=== PATIENT | female | born 1980 | race Caucasian/White ===

== ENCOUNTER → 2020-06-22 | Outpatient (CLI) | payer BC ==
--- NOTE | 2020-06-22 10:55 | US ---
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 GLAND SIZE: Right Lobe: 7.2 X 1.4 X 2.6 cm Overall Parenchyma: homogenous Left Lobe: 8.1 X 2.1 X 2.2 cm Overall Parenchyma: homogeneous Isthmus Thickness: 0.4 cm NODULES RIGHT: # of nodules measured on right: 0 LEFT: # of nodules measured on left: 0 ISTHMUS: # of nodules measured in the isthmus: 0 Bilateral neck scanned, no evidence of lymphadenopathy. IMPRESSION: Thyromegaly with no solid or cystic thyroid nodule 2017 ACR TI-RADS LEVEL: TR-RADS 1 - BENIGN: No FNA *Highest TI-RADS level nodule reported
== END | disposition home or self-care (01) ==
LOC: RADUSWWP 10:22
PROVIDERS: ATTEND Family Medicine
DX: E06.3 Autoimmune thyroiditis (principal); E01.0 Iodine-deficiency related diffuse (endemic) goiter
CPT/HCPCS: 76536

== ENCOUNTER → 2020-07-08 | Outpatient (CLI) | payer BC ==
--- NOTE | 2020-07-09 09:09 | MM ---
Reason for exam: screening (asymptomatic). History: Patient had first child at age 30. Family history of breast cancer in maternal grandmother at age 85. Took hormonal contraceptives beginning at age 17. Physical Findings: A clinical breast exam by your physician is recommended on an annual basis and results should be correlated with mammographic findings. MG 3D Screening Mammo W/Cad Bilateral CC, MLO, and XCCL view(s) were taken. The breast tissue is heterogeneously dense. This may lower the sensitivity of mammography. Nodular density upper central right breast. ASSESSMENT: Incomplete: need additional imaging evaluation, BI-RAD 0 RECOMMENDATION: Special view mammogram and ultrasound of the right breast. [facility] will attempt to contact patient to return for supplemental views and ultrasound.
== END | disposition home or self-care (01) ==
LOC: RADMAMWWP 10:53
PROVIDERS: ATTEND Family Medicine
DX: Z12.31 Encounter for screening mammogram for malignant neoplasm of breast (principal); Z80.3 Family history of malignant neoplasm of breast
CPT/HCPCS: 77063; 77067

== ENCOUNTER → 2020-07-15 | Outpatient (CLI) | payer BC ==
--- NOTE | 2020-07-15 11:29 | MM ---
Reason for exam: additional evaluation requested from abnormal screening. Last mammogram was performed less than 1 month ago. History: Patient had first child at age 30. Family history of breast cancer in maternal grandmother at age 85. Benign cyst aspiration of the left breast, 2009. Took hormonal contraceptives beginning at age 17. Physical Findings: Nurse did not find any significant physical abnormalities on exam. MG 3D Work Up W/Cad RT Spot compression CC, spot compression MLO, LM, and CCRL view(s) were taken of the right breast. Prior study comparison: July 08, 2020, bilateral MG 3d screening mammo w/cad. Right 7mm nodule 12 o'clock, 4.5cm from nipple. These results were verbally communicated with the patient and result sheet given to the patient on 07/15/20. ASSESSMENT: Incomplete: need additional imaging evaluation, BI-RAD 0 RECOMMENDATION: Ultrasound of the right breast.
--- NOTE | 2020-07-15 11:31 | USB ---
Reason for exam: additional evaluation requested from abnormal screening. History: Patient had first child at age 30. Family history of breast cancer in maternal grandmother at age 85. Benign cyst aspiration of the left breast, 2009. Took hormonal contraceptives beginning at age 17. US Breast Workup Limited RT Right limited breast ultrasound including focal area of concern, retroareolar and axilla demonstrates a 1.2 x 1.0 x 1.2cm lobular, cystic cluster at 12 o'clock. Probably benign, 6 month diagnostic mammogram and ultrasound recommended. These results were verbally communicated with the patient and result sheet given to the patient on 07/15/20. ASSESSMENT: Probably benign, BI-RAD 3 RECOMMENDATION: Follow-up diagnostic mammogram and ultrasound of the right breast in 6 months.
== END | disposition home or self-care (01) ==
LOC: RADMAMWWP 08:18
PROVIDERS: ATTEND Family Medicine
DX: N63.10 Unspecified lump in the right breast, unspecified quadrant (principal); N60.01 Solitary cyst of right breast; Z80.3 Family history of malignant neoplasm of breast
CPT/HCPCS: 77061; 77065

== ENCOUNTER → 2021-03-08 | Outpatient (CLI) | payer BC ==
--- NOTE | 2021-03-08 13:19 | XR ---
EXAMINATION TYPE: XR chest 2V DATE OF EXAM: 03/08/2021 COMPARISON: 04/09/2013 HISTORY: 40-year-old female with chest pain. [id number], [id number] TECHNIQUE: Frontal and lateral views FINDINGS: The cardiomediastinal silhouette, aorta, and pulmonary vasculature are within normal limits. Lungs an d pleural spaces are clear. IMPRESSION: No acute cardiopulmonary process.
[2021-03-08 14:58] LABS: Basophils # (A) 0.06 X 10*3/uL (0.00-0.10); Eosinophils # (A) 0.28 X 10*3/uL (0.04-0.35); Eosinophils % (A) 4.6 %; HCT 40.3 % (37.2-46.3); HGB 12.6 g/dL (12.0-15.0); Lymphocytes # (A) 2.43 X 10*3/uL (0.90-5.00); Lymphocytes % (A) 40.1 %; MCH 29.7 pg (27.0-32.0); MCHC 31.3 g/dL (32.0-37.0); Mean Platelet Volume 9.3 fL (9.5-12.2); Monocytes # (A) 0.48 X 10*3/uL (0.20-1.00); Monocytes % (A) 7.9 %; Neutrophils # (A) 2.79 X 10*3/uL (1.80-7.70); Neutrophils % (A) 46.1 %; Platelet Count 324 X 10*3/uL (140-440); RBC 4.24 X 10*6/uL (4.10-5.20); RDW 12.1 % (11.5-14.5); WBC 6.06 X 10*3/uL (4.50-10.00)
[2021-03-08 15:23] LABS: ALT 11 U/L (8-44); AST 14 U/L (13-35); African American GFR (CKD) 99.3 (60.0-200.0); Albumin 4.4 g/dL (3.8-4.9); Alkaline Phosphatase 52 U/L (41-126); BUN/Creat Ratio 13.25 Ratio (12.00-20.00); Blood Urea Nitrogen 11.2 mg/dL (9.0-27.0); Calcium 9.2 mg/dL (8.7-10.3); Carbon Dioxide 25.7 mmol/L (20.0-27.5); Chloride 102 mmol/L (96-109); Chol/HDL Ratio 3.77 Ratio; Globulin 2.8 g/dL (1.6-3.3); Glucose 89 mg/dL (70-110); Non-African American GFR(CKD) 85.7 (60.0-200.0); Potassium 3.8 mmol/L (3.5-5.5); Sodium 138 mmol/L (135-145); Total Bilirubin <0.20 mg/dL (0.30-1.20); Total Protein 7.2 g/dL (6.2-8.2)
== END | disposition home or self-care (01) ==
LOC: LABWHC1 08:59
PROVIDERS: ATTEND Family Medicine
DX: E06.3 Autoimmune thyroiditis (principal); R07.1 Chest pain on breathing; R07.89 Other chest pain; F41.8 Other specified anxiety disorders; E55.9 Vitamin D deficiency, unspecified
CPT/HCPCS: 36415; 71046; 80053; 80061; 82306; 84439; 84443; 84484; 85025; 85379

== ENCOUNTER → 2022-08-07 | Outpatient (CLI) | payer BC ==
[2022-08-07 16:00] LABS: Appearance,Urine Cloudy (Clear); Bacteria,Urine Rare /hpf; Bilirubin,Urine Negative (Negative); Blood,Urine Moderate (Negative); Color,Urine Yellow; Glucose,Urine (UA) Negative (Negative); Ketones,Urine Negative (Negative); Leukocyte Esterase,Urine Trace (Negative); Mucus,Urine Rare /hpf; Nitrite,Urine Negative (Negative); PH, Urine 5.5 (5.0-8.0); Protein,Urine Negative (Negative); RBC,Urine 5 /hpf (0-5); Specific Gravity,Urine 1.017 (1.001-1.035); Squamous Epithelial Cell,Urine 5 /hpf (0-4); Urobilinogen,Urine <2.0 mg/dL (<2.0); WBC,Urine 2 /hpf (0-5)
[2022-08-07 16:02] LABS: ALT 16 U/L (4-34); AST 20 U/L (14-36); African American GFR (CKD) >90 (>60 ml/min/1.73 sqM); Albumin 3.9 g/dL (3.5-5.0); Albumin/Globulin Ratio 1.3; Alkaline Phosphatase 64 U/L (38-126); Anion Gap 5 mmol/L; Blood Urea Nitrogen 15 mg/dL (7-17); C Reactive Protein <0.5 mg/dL (<1.0); Calcium 8.9 mg/dL (8.4-10.2); Carbon Dioxide 28 mmol/L (22-30); Chloride 103 mmol/L (98-107); Creatine Kinase 62 U/L (30-135); Globulin 2.9 g/dL; Glucose 87 mg/dL (74-99); Non-African American GFR(CKD) 87 (>60 ml/min/1.73 sqM); Phosphorus 3.1 mg/dL (2.5-4.5); Potassium 4.1 mmol/L (3.5-5.1); Sodium 136 mmol/L (137-145); T4, Free (Free Thyroxine) 1.02 ng/dL (0.78-2.19); Total Bilirubin 0.4 mg/dL (0.2-1.3); Total Protein 6.8 g/dL (6.3-8.2); Uric Acid 3.8 mg/dL (3.7-7.4)
[2022-08-07 20:11] LABS: Basophils # (A) 0.09 X 10*3/uL (0.00-0.10); Basophils % (A) 0.8 %; Eosinophils # (A) 0.21 X 10*3/uL (0.04-0.35); Eosinophils % (A) 1.9 %; HCT 40.7 % (37.2-46.3); Lymphocytes # (A) 3.77 X 10*3/uL (0.90-5.00); Lymphocytes % (A) 34.9 %; MCH 30.2 pg (27.0-32.0); MCHC 31.9 d/dL (32.0-37.0); MCV 94.4 FL (80.0-97.0); Monocytes # (A) 0.62 X 10*3/uL (0.20-1.00); Monocytes % (A) 5.7 %; NRBC Per 100 WBC 0 X 10*3/uL (0.00-0.01); Neutrophils # (A) 6.03 X 10*3/uL (1.80-7.70); Platelet Count 347 X 10*3/uL (140-440); RBC 4.31 X 10*6/uL (4.10-5.20); RDW 12.9 % (11.5-14.5)
[2022-08-07 21:05] LABS: Erythrocyte Sedimentation Rate 5 mm/Hr (0-20)
[2022-08-08 01:22] LABS: Cyclic Citrull Pep IgG Unit <1.5 U/mL (<=3.9); Cyclic Citrullinated Pep IgG Negative
[2022-08-08 08:41] LABS: Prealbumin 24.6 mg/dL (18.0-42.0)
[2022-08-08 10:09] LABS: Rheumatoid Factor, Qnt <15 IU/mL (0-15); Testosterone <10.00 ng/mL (9.01-47.94)
[2022-08-08 13:41] LABS: HLA B27 NEGATIVE
[2022-08-08 16:25] LABS: Estrogens Total 645 pg/mL
[2022-08-08 20:02] LABS: Vitamin D, 1, 25-Dihydroxy 61 pg/mL (20 - 79)
== END | disposition home or self-care (01) ==
LOC: LABWHC1 13:32
PROVIDERS: ATTEND Orthopaedic Surgery
DX: M54.12 Radiculopathy, cervical region (principal)
CPT/HCPCS: 36415; 80053; 81001; 82009; 82306; 82550; 82652; 82672; 83970; 84100; 84134; 84403; 84439; 84443; 84550; 85025; 85652; 86038; 86140; 86200; 86431; 86812

== ENCOUNTER → 2022-08-09 | Outpatient (CLI) | payer BC ==
--- NOTE | 2022-08-09 10:32 | USB ---
Reason for Exam: Clinical finding. Patient History: Menarche at age 10. First Full-Term at age 30. Late child-bearing (after 30). Premenopausal. Hormonal Contraceptives, from age 17 until age 24. 2010, Benign Cyst Aspiration on the left side. Maternal grandmother had breast cancer, age 85. Risk Values: Rosamaria 5 year model risk: 1.1%. NCI Lifetime model risk: 14.4%. Technique: Method: Whole Breast Handheld. Prior Study Comparison: 07/08/2020 Bilateral Screening Mammogram, [facility]. 07/15/2020 Right Diagnostic Mammogram, [facility]. Findings: The whole breast of the right breast, the axilla of the right breast and the retroareolar of the right breast were scanned. Imaged: Ultrasound imaging of: All 4 quadrants, the retroareolar region and axilla. Multiple cystic lesions are seen throughout the right breast. * 9:00 6 and recent nipple measuring 9 x 3 x 6 mm is present which may be hypoechoic. * 10:00 8 cm from nipple measuring up to 9 mm with mild internal complexity. Other cysts appear more simple compared to prior. Overall Assessment: Probably benign, BI-RAD 3 Management: Diagnostic Breast Ultrasound of the right breast in 6 months. Follow-up imaging for a couple of the cysts which nodule as seen on prior including 10:00 8 cm from nipple and 9:00 6 cm from nipple. A clinical breast exam by your physician is recommended on an annual basis and results should be correlated with mammographic findings. This exam should not preclude additional follow-up of suspicious palpable abnormalities. Results were given to the patient verbally at the time of exam. Electronically signed and approved by: Nawaf Vaca DO
--- NOTE | 2022-08-09 10:35 | MM ---
Reason for Exam: Follow-up at short interval from prior study. Last mammogram was performed 2 year(s) and 1 month(s) ago. Patient History: Menarche at age 10. First Full-Term at age 30. Late child-bearing (after 30). Premenopausal. Hormonal Contraceptives, from age 17 until age 24. 2010, Benign Cyst Aspiration on the left side. Maternal grandmother had breast cancer, age 85. Risk Values: Rosamaria 5 year model risk: 1.1%. NCI Lifetime model risk: 14.4%. Tissue Density: The breast tissue is heterogeneously dense. This may lower the sensitivity of mammography. Findings: Analyzed By CAD. There remains suspected cluster of cysts seen on prior ultrasound posterior depth of the right breast 8.1 cm nipple on MLO view measuring 9 mm. No new suspicious masses, calcifications or distortions within either breast. Overall Assessment: Incomplete: need additional imaging evaluation, BI-RAD 0 Management: Diagnostic Breast Ultrasound of the right breast. Results were given to the patient verbally at the time of exam. Patient should continue monthly self-breast exams. A clinical breast exam by your physician is recommended on an annual basis. This exam should not preclude additional follow-up of suspicious palpable abnormalities. Note on Rosamaria scores and lifetime risk: 1. A Rosamaria score greater than 3% is considered moderate risk. If this is the case, consider specialist referral to assess eligibility for a risk reducing agent. 2. If overall lifetime risk for the development of breast cancer is 20% or higher, the patient may qualify for future screening with alternating mammogram and breast MRI. Electronically signed and approved by: Nawaf Vaca DO
== END | disposition home or self-care (01) ==
LOC: RADMAMWWP 08:27
PROVIDERS: ATTEND Family Medicine
DX: N60.01 Solitary cyst of right breast (principal); N60.02 Solitary cyst of left breast; Z80.3 Family history of malignant neoplasm of breast
CPT/HCPCS: 77062; 77066

== ENCOUNTER → 2023-08-28 | Outpatient (CLI) | payer OTHER ==
--- NOTE | 2023-08-28 21:31 | US ---
EXAMINATION TYPE: US thyroid st tissue head/neck DATE OF EXAM: 08/28/2023 COMPARISON: NONE CLINICAL INDICATION: Female, 43 years old with history of E01.0 THYROMEGALY M54.2 NECK PAIN RIGHT; Johnson shimoto's, on meds GLAND SIZE: Right Lobe: 6.7 x 3.0 x 2.0 cm Overall Parenchyma: homogeneous Left Lobe: 6.6 x 2.6 x 2.3 cm Overall Parenchyma: heterogeneous Isthmus Thickness: 0.8 cm NODULES RIGHT: # of nodules measured on right: 0 LEFT: # of nodules measured on left: 1 1. 1.1 x 0.8 x 0.7cm, mid , mixed cystic and solid, isoechoic nodule, which is wider than tall, with smooth margins, without echogenic foci. Prior size: [employer] ISTHMUS: # of nodules measured in the isthmus: 0 Bilateral neck scanned, no evidence of lymphadenopathy. IMPRESSION: 1. No suspicious nodules. 2017 ACR TI-RADS LEVEL: TR-RADS 2 - Not Suspicious: No FNA *Highest TI-RADS level nodule reported
--- NOTE | 2023-09-03 08:17 | MM ---
Reason for Exam: Screening (asymptomatic). Last mammogram was performed 1 year(s) and 1 month(s) ago. Patient History: Menarche at age 10. First Full-Term at age 30. Late child-bearing (after 30). Premenopausal. Hormonal Contraceptives, from age 17 until age 24. 2010, Benign Cyst Aspiration on the left side. Maternal grandmother had breast cancer, age 85. Sister had breast cancer, age 60. Risk Values: Rosamaria 5 year model risk: 1.7%. NCI Lifetime model risk: 20.2%. Prior Study Comparison: 07/08/2020 Bilateral Screening Mammogram, [facility]. 07/15/2020 Right Diagnostic Mammogram, [facility]. 08/09/2022 Bilateral MG 3D diag mammo w/cad [facility], [facility]. Tissue Density: The breasts are heterogeneously dense, which may obscure small masses. Findings: Analyzed By CAD. There is a new indeterminate cluster of microcalcifications inner upper left breast approximately 9.4 cm from the nipple. There is also a nodular density inner slightly upper left breast approximately 9 to 10 cm from the nipple. Additional views are recommended for both sites. The right breast is free of microcalcifications or mass density. Overall Assessment: Incomplete: need additional imaging evaluation, BI-RAD 0 Management: Diagnostic Mammogram of the left breast. . Patient should continue monthly self-breast exams. A clinical breast exam by your physician is recommended on an annual basis. This exam should not preclude additional follow-up of suspicious palpable abnormalities. Note on Rosamaria scores and lifetime risk: 1. A Rosamaria score greater than 3% is considered moderate risk. If this is the case, consider specialist referral to assess eligibility for a risk reducing agent. 2. If overall lifetime risk for the development of breast cancer is 20% or higher, the patient may qualify for future screening with alternating mammogram and breast MRI. Electronically signed and approved by: Celso Carter M.D. Radiologis
== END | disposition home or self-care (01) ==
LOC: RADUSWWP 13:57
PROVIDERS: ATTEND Family Medicine
DX: Z12.31 Encounter for screening mammogram for malignant neoplasm of breast (principal); R92.333 Mammographic heterogeneous density, bilateral breasts; M54.2 Cervicalgia; E04.1 Nontoxic single thyroid nodule; E06.3 Autoimmune thyroiditis; Z80.3 Family history of malignant neoplasm of breast
CPT/HCPCS: 76536; 77063; 77067

== ENCOUNTER → 2023-09-10 | Outpatient (CLI) | payer OTHER ==
--- NOTE | 2023-09-10 09:19 | MM ---
Reason for Exam: Additional evaluation requested from abnormal screening. Last screening mammogram was performed less than 1 month ago. Patient History: Menarche at age 10. First Full-Term at age 30. Late child-bearing (after 30). Premenopausal. Patient has history of breast feeding. Hormonal Contraceptives, from age 17 until age 24. 2010, Benign Cyst Aspiration on the left side. Maternal grandmother had breast cancer, age 85. Sister had breast cancer, age 60. Risk Values: Rosamaria 5 year model risk: 1.7%. NCI Lifetime model risk: 20.2%. Prior Study Comparison: 07/08/2020 Bilateral Screening Mammogram, [facility]. 07/15/2020 Right Diagnostic Mammogram, [facility]. 08/09/2022 Bilateral MG 3D diag mammo w/cad [facility], [facility]. 08/28/2023 Bilateral MG 3D screening mammo w/cad, [facility]. Tissue Density: Left: The breasts are heterogeneously dense, which may obscure small masses. Findings: Analyzed By CAD. There is a 1.7 cm mass in either upper left breast 10.4 cm from the nipple. Ultrasound is recommended. Overall Assessment: Incomplete: need additional imaging evaluation, BI-RAD 0 Management: Diagnostic Breast Ultrasound of the left breast. . Results were given to the patient verbally at the time of exam. Patient should continue monthly self-breast exams. A clinical breast exam by your physician is recommended on an annual basis. This exam should not preclude additional follow-up of suspicious palpable abnormalities. Note on Rosamaria scores and lifetime risk: 1. A Rosamaria score greater than 3% is considered moderate risk. If this is the case, consider specialist referral to assess eligibility for a risk reducing agent. 2. If overall lifetime risk for the development of breast cancer is 20% or higher, the patient may qualify for future screening with alternating mammogram and breast MRI. Electronically signed and approved by: Celso Carter M.D. Radiologis
--- NOTE | 2023-09-10 09:44 | USB ---
Reason for Exam: Additional evaluation requested from abnormal screening. Patient History: Menarche at age 10. First Full-Term at age 30. Late child-bearing (after 30). Premenopausal. Patient has history of breast feeding. Hormonal Contraceptives, from age 17 until age 24. 2010, Benign Cyst Aspiration on the left side. Maternal grandmother had breast cancer, age 85. Sister had breast cancer, age 60. Risk Values: Rosamaria 5 year model risk: 1.7%. NCI Lifetime model risk: 20.2%. Technique: Method: Targeted. Prior Study Comparison: 07/15/2020 Right Diagnostic Mammogram, [facility]. 08/09/2022 Bilateral MG 3D diag mammo w/cad [facility], [facility]. 08/28/2023 Bilateral MG 3D screening mammo w/cad, [facility]. Findings: The upper section of the breast of the left breast, the axilla of the left breast and the retroareolar of the left breast were scanned. Simple cyst left breast at the 11:00 position 10 cm from the nipple which measures 1.6 x 0.7 cm. No solid masses are detected.. Overall Assessment: Benign, BI-RAD 2 Management: Screening Mammogram of both breasts in 1 year. A clinical breast exam by your physician is recommended on an annual basis and results should be correlated with mammographic findings. This exam should not preclude additional follow-up of suspicious palpable abnormalities. Results were given to the patient verbally at the time of exam. Electronically signed and approved by: Celso Carter M.D. Radiologis
== END | disposition home or self-care (01) ==
LOC: RADMAMWWP 08:35
PROVIDERS: ATTEND Family Medicine
DX: R92.332 Mammographic heterogeneous density, left breast (principal); R92.8 Other abnormal and inconclusive findings on diagnostic imaging of breast; Z80.3 Family history of malignant neoplasm of breast
CPT/HCPCS: 77061; 77065